=== PATIENT | male | born 1975 | race Caucasian/White ===

== ENCOUNTER 2023-06-13 04:52 | Day surgery (SDC) | payer OTHER ==
[2023-06-11 11:45] VITALS: BMI 28.8
[2023-06-13 11:06] VITALS: TEMP 97.3
[2023-06-13 11:26] VITALS: PULSE 79; RESP 16
[2023-06-13] MEDS ORDERED: ACETAMINOPHEN 325 MG TABLET (FP) ONE (11:40)
[2023-06-13 11:47] VITALS: BP 113/59
[2023-06-13] MEDS ORDERED: ACETAMINOPHEN 325 MG TABLET (FP) PO ONE (12:00)
== END 2023-06-13 12:00 | disposition home or self-care (01) ==
LOC: JASU-ENDO 04:52
PROVIDERS: ATTEND Internal Medicine Gastroenterology
PROC: 0DBN8ZX Excision of Sigmoid Colon, Via Natural or Artificial Opening Endoscopic, Diagnostic (ICD-10-PCS; principal; 2023-06-13 11:00)
DX: Z12.11 Encounter for screening for malignant neoplasm of colon (principal); D12.5 Benign neoplasm of sigmoid colon; K64.8 Other hemorrhoids
CPT/HCPCS: 88305-TC